=== PATIENT | female | born 1950 | race Caucasian/White ===

== ENCOUNTER 2016-09-20 13:19 | Inpatient (IN) | payer MEDICARE, BC ==
[~2016-09-20] VITALS: Ht 154.9 cm; Wt 73.0 kg
[~2016-09-20 13:19] MED LIST: BETAPACE 80MG80 MG PO; CARAFATE 1GM1 G PO; CORDARONE200 MG/TAB PO; COUMADIN 3MG3 MG/TAB PO; COZAAR 50MG50 MG/TAB PO; GICOCKTAIL PO; IRON325 MG PO; K-DUR20 MEQ PO; LOPRESSOR 550 MG/TAB PO; MULTIPLE VITAMI1 TA5 PO; MYLICON 8080 MG/TAB. PO; NEURONTIN100 MG/CAP PO; NEURONTIN300 MG/CAP PO; NYSTATIN OR100 MU/ML PO; OSTEO-BI-FLEX 21 TAB PO; OXYCODONE H5 MG/5 ML PEG; OYSCO 500500 M1 PO; PHENERGAN 25 TA25 MG PO; PHENERGAN25 MG/ML IV; PREDNISONE 2.52.5 MG PO; PREDNISONE10 MG PO; PRILOSEC 20MG20 MG PO; PRINIVIL10 MG PO; PROTONIX 40MG T40 MG PO; REGLAN 10M10 MG/2 ML IV; REGLAN 10MG10 MG/TAB PO; REGLAN 5MG T5 MG/TAB PO; SEROQUEL 2525 MG/TAB PO; SINEMET 10/101 UDTAB PO; TAZTIA180; TYLENOL 325MG325 MG PO; TYLENOL ELIX32 MG/M2 PEG; VITAMIN D32000 I1 PO; VIVELLE-DO0.05 MG/24 TD; XANAX .25M0.25 MG/TA PO; XARELTO10 MG PO; XARELTO20 MG PO; ZANTAC 150MG T150 MG PO; ZOFRAN 4MG T4 MG/TAB PO; ZOFRAN INJ4 MG/2 ML IV; ZOFRAN ORAL4 MG/5 ML PEG
[2016-11-17] MEDS ORDERED: LOPRESSOR 225 MG/TAB PO (12:03)
[2016-11-17] MEDS ORDERED: LEVSIN0.125 M1 PO (12:04)
[2016-11-17] MEDS ORDERED: COLACE 100100 MG/CAP PO (12:05)
[2016-11-18] VITALS (12 sets, daily range): BP systolic 117–155; BP diastolic 54–84; PULSE 16–94; TEMP 98–98.6
[2016-11-19] VITALS (7 sets, daily range): BP systolic 98–131; BP diastolic 37–56; PULSE 87–107; TEMP 98.1–99.7
[2016-11-19 06:00] LABS: HEMATOCRIT 26.9 % (37.0-47.0); HEMOGLOBIN 8.2 g/dl (12.5-16.0)
[2016-11-19 13:15] LABS: HEMATOCRIT 26.9 % (37.0-47.0); HEMOGLOBIN 8.1 g/dl (12.5-16.0)
[2016-11-19 15:12] LABS: POTASSIUM 3.8 mmol/L (3.4-5.0)
[2016-11-20] VITALS (10 sets, daily range): BP systolic 95–122; BP diastolic 38–58; PULSE 57–98; TEMP 96.9–99.2
[2016-11-20 06:01] LABS: HEMATOCRIT 26.7 % (37.0-47.0)
[2016-11-20] MEDS ORDERED: NORCO 325 MG-7.1 TAB PO (17:24)
[2016-11-20] MEDS ORDERED: ROXICODONE 55 MG/TAB PO (17:25)
== END 2016-11-20 17:30 | disposition home or self-care (01) | DRG 483 ==
LOC: JCC 11-18 06:49
PROVIDERS: Orthopaedic Surgery
PROC: 0RRK00Z Replacement of Left Shoulder Joint with Reverse Ball and Socket Synthetic Substitute, Open Approach (ICD-10-PCS; principal; 2016-11-18 10:45)
DX: M75.122 Complete rotator cuff tear or rupture of left shoulder, not specified as traumatic (principal); I69.331 Monoplegia of upper limb following cerebral infarction affecting right dominant side; M19.212 Secondary osteoarthritis, left shoulder; I10 Essential (primary) hypertension; I48.0 Paroxysmal atrial fibrillation; I07.1 Rheumatic tricuspid insufficiency; Z86.711 Personal history of pulmonary embolism; G20 Parkinson's disease; D64.9 Anemia, unspecified
CPT/HCPCS: A4315; A9284; C1713; C1776; J0690; J1170; J1720; J1940; J2300; J2405; J2704; J2765; J3010; J7050; J7120; P9016

== ENCOUNTER → 2016-10-13 | Outpatient (CLI) | payer MEDICARE, BC ==
[~2016-10-13] MED LIST changes: +COLACE 100100 MG/CAP PO; +LEVSIN0.125 M1 PO; +LOPRESSOR 225 MG/TAB PO; +NORCO 325 MG-7.1 TAB PO; +ROXICODONE 55 MG/TAB PO
== END ==
LOC: COL.RAD 09-30 09:30
DX: M19.012 Primary osteoarthritis, left shoulder (principal); S43.492A Other sprain of left shoulder joint, initial encounter

== ENCOUNTER → 2016-11-10 | Outpatient (CLI) | payer MEDICARE, BC ==
[2016-11-10 12:54] LABS: HIV 1/2 Antibodies Non-Reactive; HIV-1p24 Antigen Non-Reactive
== END ==
LOC: COL.LAB 11:27
PROVIDERS: Orthopaedic Surgery
DX: Z96.612 Presence of left artificial shoulder joint (principal)

== ENCOUNTER 2017-08-31 10:00 | Outpatient (RCR) | payer MEDICARE, BC ==
[2017-08-24 16:47] VITALS: BP 137/78; PULSE 93; TEMP 98.1
[2017-08-26 13:23] VITALS: BP 126/58; PULSE 81; TEMP 98.3
[2017-08-29 13:19] VITALS: BP 135/71; PULSE 81; TEMP 97.7
[~2017-08-31] VITALS: Ht 154.9 cm; Wt 83.0 kg
[~2017-08-31 10:00] MED LIST changes: +VIVLODEX5 MG PO
[2017-08-31 10:07] VITALS: BP 146/77; PULSE 80; TEMP 98.1
== END 2017-08-31 11:43 | disposition home or self-care (01) ==
LOC: EUO 10:00
DX: E61.1 Iron deficiency (principal); Z79.899 Other long term (current) drug therapy
CPT/HCPCS: J2916

== ENCOUNTER 2018-09-06 13:00 | Outpatient (RCR) | payer MEDICARE, BC ==
[2018-08-29 11:24] VITALS: BP 156/79; PULSE 77
[2018-09-01 14:45] VITALS: BP 150/78; PULSE 95; TEMP 97.2
[2018-09-04 13:01] VITALS: BP 134/66; PULSE 80; TEMP 98.5
--- NOTE | 2018-09-04 13:45 | NUR ---
here for iron infusion. With sterile technique right upper arm PICC dressing change done with insertion site cleansed with ChloraPrep 1, chlorhexidine impregnated disc applied, skin prep, StatLock, and Tegaderm applied. Signs or symptoms of IV complications noted. No concerns voiced. Arm will be wrapped with Cheng to protect catheter when infusion completed. Patient plans to return on Tuesday for another iron infusion.
[~2018-09-06] VITALS: Ht 154.9 cm; Wt 84.4 kg
[~2018-09-06 13:00] MED LIST changes: +ESTROVEN MAX400 MCG PO; +MULTI VITAMINS1 TAB PO; +ZANTAC 7575 MG PO
[2018-09-06 13:46] VITALS: BP 143/65; PULSE 80; TEMP 98.3
== END 2018-09-06 14:56 | disposition home or self-care (01) ==
LOC: EUO 13:00
DX: E61.1 Iron deficiency (principal); M89.9 Disorder of bone, unspecified; Z96.612 Presence of left artificial shoulder joint
CPT/HCPCS: C1751; J2916

== ENCOUNTER → 2019-08-15 | Outpatient (CLI) | payer MEDICARE, BC ==
[2019-08-15 11:24] LABS: ALBUMIN 4.1 gm/dL (3.5-5.0); BILIRUBIN,TOTAL 0.4 mg/dL (0.0-1.0); CALCIUM 9.1 mg/dL (8.4-10.2); CREATININE, serum 0.62 (0.52-1.25); POTASSIUM 5.1 mmol/L (3.4-5.0); TOTAL PROTEIN 7.1 gm/dL (6.4-8.2)
== END ==
LOC: COL.LAB 10:40
PROVIDERS: Orthopaedic Surgery
DX: Z79.1 Long term (current) use of non-steroidal anti-inflammatories (NSAID) (principal)

== ENCOUNTER 2020-10-17 09:16 | Day surgery (SDC) | payer MEDICARE, BC ==
[2020-10-17] VITALS (10 sets, daily range): BP systolic 112–167; BP diastolic 52–80; PULSE 65–77; TEMP 98
[~2020-10-17] VITALS: Ht 154.9 cm; Wt 91.8 kg
[~2020-10-17 09:16] MED LIST changes: +MOBIC 7.5MG7.5 MG PO; -MULTI VITAMINS1 TAB PO; +MULTIVITAMIN200 MCG PO; +VITAMIN D31000 I1 PO; -VITAMIN D32000 I1 PO; -VIVLODEX5 MG PO
[2020-10-17] MEDS ORDERED: PROTONIX 40MG T40 MG PO (10:13)
[2020-10-17] MEDS ORDERED: ALDACTONE 25MG25 M1 PO (10:14)
[2020-10-17] MEDS ORDERED: ZIAC 5/6.25MG T1 TAB PO (10:14)
[2020-10-17] MEDS ORDERED: CALCIUM-MAGNES1 EAC1 PO (10:15)
[2020-10-17] MEDS ORDERED: FERREX 150150 MG PO (10:15)
[2020-10-17] MEDS ORDERED: CLARITIN 1010 MG/TAB PO (10:16)
[2020-10-17] MEDS ORDERED: ELDERBERRY PO (10:17)
[2020-10-17] MEDS ORDERED: LEVSIN0.125 M1 PO (10:18)
[2020-10-17 10:20] LABS: HEMATOCRIT 38.9 % (37.0-47.0); HEMOGLOBIN 12.1 g/dl (12.5-16.0); MEAN CELL VOLUME 89 fl (80.0-100.0); MEAN CORPUSCULAR HEMOGLOBIN 28 pg (27.0-31.0); MEAN CORPUSCULAR HGB CONC 31 g/dl (33.0-37.0); MEAN PLATELET VOLUME 9.6 fl (7.4-10.4); PLATELET COUNT 298 K/mm3 (130-400); RED BLOOD COUNT 4.37 M/mm3 (4.10-5.30)
[2020-10-17 10:28] LABS: PROTHROMBIN TIME 11.2 SECONDS (9.7-12.8)
[2020-10-17 10:31] LABS: PARTIAL THROMBOPLASTIN TIME 30.5 SECONDS (26.0-37.0)
[2020-10-17 10:32] LABS: CALCIUM 9.3 mg/dL (8.4-10.2); CREATININE, serum 0.86 (0.52-1.25); POTASSIUM 4.2 mmol/L (3.4-5.0)
--- NOTE | 2020-10-17 12:01 | NUR ---
SEE MERGE DOCUMENTATION FOR MEDICATION ADMINISTRATION TIMES AND INTRA/POST PROCEDURE SEDATION ASSESSMENTS. RIGHT HAND BARBEAU TEST POSITIVE.
[2020-10-17] MEDS ORDERED: ASPIRIN E.C. 8181 MG PO (12:53)
[2020-10-17] MEDS ORDERED: PLAVIX 75MG TAB75 MG PO (12:54)
[2020-10-17] MEDS ORDERED: IMDUR 30MG30 MG/TAB PO (12:54)
[2020-10-17] MEDS ORDERED: LIPITOR 40MG TA40 MG PO (12:55)
--- NOTE | 2020-10-17 13:00 | NUR ---
BACK TO [facility] FROM [facility]. PT IS AWAKE, DROWSY WITH REG AND UNLABORED RESPS. TELE IMPLEMENTED. TR BAND TO RT WRIST, CMS IS INTACT DISTAL. PT AND DAUGHTER AWARE OF POC. LUNCH ORDERED. CALL LIGHT IN REACH. WCTM
--- NOTE | 2020-10-17 16:40 | NUR ---
PT READY FOR DEPARTURE. PT DID WELL DURING RECOVERY, ON TELE THROUGHOUT RECOVERY. NO PROBLEMS WITH TR BAND, IT HAS BEEN DEFLATED AND RT RADIAL SITE DRESSED WITH BANDAID, 2X2 AND COBAN. CMS IS INTACT DISTAL. PT HAS BEEN AMBULATORY WITH STEADY GAIT. I HAVE REVIEWED DC/RX AND FU INSTRUCTIONS WTIH PT AND DAUGHTER WHO VERBALIZED UNDERSTANDING. IV DC'D WITH CATH INTACT, DRESSING APPLIED. TO EXIT VIA WHEELCHAIR.
== END 2020-10-17 16:40 | disposition home or self-care (01) ==
LOC: COL.CAR 09:16
PROVIDERS: Internal Medicine Cardiovascular Disease
DX: I25.110 Atherosclerotic heart disease of native coronary artery with unstable angina pectoris (principal); I48.0 Paroxysmal atrial fibrillation; I10 Essential (primary) hypertension; K44.9 Diaphragmatic hernia without obstruction or gangrene; D50.9 Iron deficiency anemia, unspecified; E66.9 Obesity, unspecified; M19.90 Unspecified osteoarthritis, unspecified site; G47.33 Obstructive sleep apnea (adult) (pediatric); F41.9 Anxiety disorder, unspecified; Z68.39 Body mass index [BMI] 39.0-39.9, adult; Z90.89 Acquired absence of other organs; Z86.73 Personal history of transient ischemic attack (TIA), and cerebral infarction without residual deficits; Z90.710 Acquired absence of both cervix and uterus; Z96.619 Presence of unspecified artificial shoulder joint; Z88.8 Allergy status to other drugs, medicaments and biological substances; Z99.89 Dependence on other enabling machines and devices; Z88.6 Allergy status to analgesic agent; Z79.899 Other long term (current) drug therapy; Z79.52 Long term (current) use of systemic steroids; Z82.61 Family history of arthritis; Z80.3 Family history of malignant neoplasm of breast; Z80.6 Family history of leukemia
CPT/HCPCS: C1769; C1887; J1644; J2250; J3010; Q9967